=== PATIENT | female | born 1950 | race Caucasian/White ===

== ENCOUNTER → 2020-11-11 12:27 | Outpatient (CLI) | payer MEDICARE, SELFPAY ==
--- NOTE | ~2020-11-11 | DEXA_ITS ---
Bone Density Report Name: Lennie Beasley Age: 70 Sex: Female Ethnicity: White Date of : 1950 Indication: postmenopausal; screening for osteoporosis; asthma or emphysema; hysterectomy; Referring Provider: ANISA VAZQUEZ Study: Bone densitometry was performed. Exam Date: November 11, 2020 Accession number: [id number] Bone Density: Region BMD T-score Z-score Classification AP Spine (L1, L2, L3) 0.904 -1.0 1.2 Normal Femoral Neck (Left) 0.669 -1.6 0.3 Osteopenia Total Hip (Left) 0.854 -0.7 0.9 Normal Femoral Neck (Right) 0.657 -1.7 0.2 Osteopenia Total Hip (Right) 0.823 -1.0 0.7 Normal Total Hip Mean 0.839 -0.9 0.8 Normal World Health Organization criteria for BMD impression classify patients as: Normal (T-score at or above -1.0), Osteopenia (T-score between -1.0 and -2.5), or Osteoporosis (T-score at or below -2.5). 10-year Fracture Risk(1): Major Osteoporotic Fracture 12% Hip Fracture 3.4% Reported Risk Factors: [place] (), Neck BMD=0.657, BMI=28.5, smoking (1) FRAX(R) Version 3.08. Fracture probability calculated for an untreated patient. Fracture probability may be lower if the patient has received treatment. Clinical Information Provided by Patient: Smokes Has the following medical conditions: Asthma or Emphysema, Hysterectomy Patient maximum height was 63.7 Menopause Age: 43 No regular weight bearing exercise Drinks caffeinated beverages Onset of menses at age 12 Number of children 2 Impression: The patient has low bone mass, based on the Right Femoral Neck T-score. The patient has an estimated ten-year risk of hip fracture of 3.4% and an estimated ten-year risk of major fracture of 12%, based on the WHO FRAX algorithm. The patient has risk factors, including: smoking. Discussion: BONE DENSITY IS LOW AT ONE OR MORE SKELETAL SITES. THE PATIENT'S BMD AND CLINICAL RISK FACTORS CONTRIBUTE TO THIS PATIENT'S INCREASED RISK OF FRACTURE. This patient's lowest T-score is low at one or more skeletal sites. It meets the World Health Organization's (WHO) criteria for ?low bone mass? (T-score between -1.0 and -2.5). The patient's 10-year risk of hip fracture as calculated by FRAX exceeds the threshold where pharmacological therapy is recommended by the National Osteoporosis Foundation (NOF). However, all treatment decisions require clinical judgment and consideration of individual patient factors, including patient preferences, comorbidities, previous drug use, risk factors not captured in the FRAX model (e.g., frailty, falls, vitamin D deficiency, increased bone turnover, interval significant decline in bone density) and possible under or overestimation of fracture risk by FRAX. The patient should follow a healthful lifestyle (good nutrition with adequate calcium and vitamin
== END ==
PROVIDERS: PCP Family Medicine; Visit Provider Family Medicine
DX: Z78.0 Asymptomatic menopausal state (principal); M85.852 Other specified disorders of bone density and structure, left thigh; M85.851 Other specified disorders of bone density and structure, right thigh
CPT/HCPCS: 77080

== ENCOUNTER 2023-11-04 08:52 | Outpatient (CLI) | payer MEDICARE, SELFPAY ==
--- NOTE | ~2023-11-04 | CT_ITS ---
EXAMINATION: CT lung screening DATE: 11/04/2023 09:04 INDICATION: Personal history of nicotine dependence TECHNIQUE: Computed tomography (CT) of the chest was performed without intravenous contrast. Addition al 3D reconstructions utilizing coronal maximum intensity projection (MIP) were performed. The dose- length product was 83.67 mGy-cm. COMPARISON: None FINDINGS: Linear bands of discoid atelectasis/scarring in the lingula and right middle lobe. 6 x 5 mm spiculate d right middle lobe nodule at the cephalad aspect of this band of atelectasis near the junction of th e major and minor fissures. There are a few additional scattered 3 mm smaller pulmonary nodules in derek th lungs. These include a couple tiny calcified nodules at the lingula and right lower lobe along wit h calcified right hilar and mediastinal lymph nodes consistent with old granulomatous disease. No ple ural effusion. Heart size is normal. Small pericardial effusion. Atherosclerotic coronary artery calc ific location and aortic valve calcifications. Thoracic aorta is normal in caliber. No pathologically enlarged thoracic lymphadenopathy. 1.8 cm ovoid mass with central calcification at the left breast. Small splenic calcific location consistent with old granulomatous disease. Mild thoracic spondylosis. IMPRESSION: 1. Lung-RADS category 2: Benign appearance or behavior. Continue annual screening with noncontrast lo w-dose chest CT in 12 months. 2. 1.8 cm ovoid left breast mass which could represent the lesion of concern described on prior breas t imaging on 12/21/2017 for which ultrasound-guided biopsy was recommended. Correlate with clinical his tory and any more recent breast imaging. Reviewed, dictated and finalized at location A. IMPRESSION: 1. Lung-RADS category 2: Benign appearance or behavior. Continue annual screeni ng with noncontrast low-dose chest CT in 12 months. 2. 1.8 cm ovoid left breast mass which could represent the lesion of concern de scribed on prior breast imaging on 12/21/2017 for which ultrasound-guided biopsy was recommended. Correlate with clinical history and any more recent breast zaire ging.
== END 2023-11-04 08:53 ==
PROVIDERS: PCP Family Medicine; Visit Provider Physician Assistant
DX: Z12.2 Encounter for screening for malignant neoplasm of respiratory organs (principal); Z87.891 Personal history of nicotine dependence
CPT/HCPCS: 71271

== ENCOUNTER 2024-07-09 09:41 | Outpatient (CLI) | payer MEDICARE, SELFPAY ==
--- NOTE | ~2024-07-09 | DEXA_ITS ---
Bone Density Report Name: HODAN WALL Age: 73 Sex: Female Ethnicity: White Date of : 1950 Indication: osteopenia; hysterectomy; Referring Provider: ANISA VAZQUEZ Study: Bone densitometry was performed. Exam Date: July 09, 2024 Accession number: [id number] Bone Density: Region BMD T-score Z-score Classification AP Spine(L1-L4) 0.973 -0.7 1.8 Normal Femoral Neck (Left) 0.681 -1.5 0.6 Osteopenia Total Hip (Left) 0.880 -0.5 1.3 Normal Femoral Neck (Right) 0.646 -1.8 0.3 Osteopenia Total Hip (Right) 0.808 -1.1 0.7 Osteopenia Total Hip Mean 0.844 -0.8 1.0 Normal World Health Organization criteria for BMD impression classify patients as: Normal (T-score at or above -1.0), Osteopenia (T-score between -1.0 and -2.5), or Osteoporosis (T-score at or below -2.5). 10-year Fracture Risk(1): Major Osteoporotic Fracture 7.2% Hip Fracture 1.7% Reported Risk Factors: [place] (), Neck BMD=0.646, BMI=30.2 (1) FRAX(R) Version 3.08. Fracture probability calculated for an untreated patient. Fracture probability may be lower if the patient has received treatment. Previous Exams: Region Exam Age BMD T-score BMD Change BMD Change Date g/cm2 vs Baseline vs Previous Total Hip(Left) 07/09/2024 73 0.880 -0.5 0.013 (1.4%) 0.013 (1.4%) 12/10/2016 66 0.868 -0.6 Total Hip(Right) 07/09/2024 73 0.808 -1.1 0.007 (0.8%) 0.007 (0.8%) 12/10/2016 66 0.802 -1.2 *Denotes significance at 95% confidence level, LSC for Total Hip = 0.027 g/cm2 Clinical Information Provided by Patient: Has the following medical conditions: Hysterectomy Patient maximum height was 64 No regular weight bearing exercise Drinks caffeinated beverages Onset of menses at age 12 Number of children 2 Impression: The patient has low bone mass, based on the Right Femoral Neck T-score. The patient has an estimated ten-year risk of hip fracture of 1.7% and an estimated ten-year risk of major fracture of 7.2%, based on the WHO FRAX algorithm. No significant bone loss was observed. Discussion: BONE DENSITY IS LOW AT ONE OR MORE SKELETAL SITES. This patient's lowest T-score is low at one or more skeletal sites. It meets the World Health Organization's (WHO) criteria for ?low bone mass? (T-score between -1.0 and -2.5). The patient's 10-year risk of fracture as calculated by FRAX is less than the threshold where pharmacological therapy is recommended by the National Osteoporosis Foundation (NOF). However, all treatment decisions require clinical judgment and consideration of individual patient factors, including patient preferences, comorbidities, previous drug use, risk factors not captured in the FRAX model (e.g., frailty, falls, vitamin D deficiency, increased bone turnover, interval significant decline in bone density) and possible under or overestimation of fracture risk by FRAX. The patient should follow a healthful lifestyle (good nutrition with adequate calcium and vitamin D, and appropriate weight-bearing exercise). Follow-Up: Consider repeating this study in 2 to 3 years to reassess this patient's status, or sooner if there is some new clinical indication. Reported by: MAN on 07/09/2024 10:12:00 AM. Reviewed, dictated and finalized at location AShailesh LANDEROS
--- OUTSIDE RECORDS SUMMARY | 2024-07-09 10:35 | XMS_ITS | Continuity of Care Document ---
Author Organization [facility] [place] [address] [place] [address] Phone Care Team Providers Care Web Analytics Developer Name Role Phone Isaac Dallas Unavailable Unavailable Procedures Procedure Date Post-op Follow-up Visit Post-op Follow-up Visit Remove Cataract, Insert Lens No Charge Glasses Check Office/outpatient Visit, Est IOLMaster-Professional Advance Directives Directive Yes / No Effective Date File Name No Information Encounters Encounter Description Practice Location Reason(s) For Visit Diagnoses Date Provider Providers Copied on Encounter [facility], [address] [place] [address] [address], [place], [place], [id number], [place] tel:[phone] [facility] No Information Oct-2 2-200 9 Burt Gray. [address] , [address], [place], [place], [facility] [place], [place]. tel:[phone] [facility], [address] [place] [address] [address], [place], [place], [id number], [place] tel:[phone] [facility] No Information Oct-1 4-200 9 Burt Gray. [address] [facility] [address] , [address], [place], [address], [place]. tel:[phone] [facility], [address] [place] [address] [address], [place], [place], [id number], [place] tel:[phone] [facility] No Information Oct-1 3-200 9 [facility] Edjaret. [address], [place], [address], [place]. tel:[phone] Referring Provider: Emmett Villatoro, [address] [facility] [address], [place], [facility]. tel:[phone] [facility], [address], [place], [place], [address], [place] tel:[phone] [facility] No Information Oct-0 9-200 9 Porras OD Emmett. [address] [facility] [address], [place], [address], [place]. tel:[phone] Office/outpat ient Visit, [facility], [address], [place], [place], [address], [place] tel:[phone] [facility] No Information Feb-0 8-200 9 [facility] Edjaret. [facility] [address], [place], [address], [place]. tel:[phone] Referring Provider: Emmett Villatoro, Dan[address] [facility] [address], [place], [place], [facility]. tel:[phone] Family History Family Member Type Diagnosis Age At Onset No Information Payers Payer name Insurance type Covered republican ID Authoriza tion(s) No Information Social History Type Description Quantity Date Captured Comments Sex Female Smoking Status No Information Chief Complaint And Reason For Visit No Information Reason For Referral Reason For Referral No Information History Of Present Illness Encounter Date Complaint History Of Prese nt Illness No Information Functional Status Date Functional Assessmen t No Information Instructions Date Instruction Additional Infor mation No Information Assessments Type Assessment Date No Information Patient Care Teams Name Effective Dates (start - stop) Status Members No Information
--- OUTSIDE RECORDS SUMMARY | 2024-07-09 10:35 | XMS_ITS | Clinical Summary ---
Author Organization [facility] Address [address] [place] [address] Care Team Providers Care Monogram Machine Operator Name Role Phone Serina Irizarry MD Primary Care Provider + Allergies Active Allergy Reactions Criticality Noted Date Comments Sulfa (Sulfonamide Antibiotics) Hives Medium 12/15 Medications buPROPion XL (WELLBUTRIN XL) 300 mg 24 hr tablet Take 300 mg by mouth daily. Active budesonide-form oterol (SYMBICORT) 160-4.5 mcg/actuation inhaler Inhale 2 puffs 2 (two) times a day. Rinse mouth with water after use to reduce aftertaste and incidence of candidiasis. Do not swallow. Active aspirin 81 mg tablet Take 81 mg by mouth daily. Active albuterol sulfate 90 mcg/actuation aerosol powdr breath activated Inhale. Active Active Problems Problem Noted Date Diagnosed Date Mammogram abnormal 01/05/2018 Encounters Date Type Department Care Team Description 06/05/2024 10:10 AM BUS PERSON DISHWASHER - 06/05/2024 11:59 PM [facility] Hospital Encounter [facility] Advanced Medicine Breast Imaging [facility] ([facility]) [address] [place] [address] Screening mammogram, encounter for Discharge Disposition: Discharge to home or self care from Last 3 Months Surgical History Surgery Date Site/Laterality Comments BREAST BIOPSY 1996,2007 Left BREAST BIOPSY 01/18/2018 Left Medical History Medical History Date Comments Depression Glaucoma Social History Tobacco Use Types Packs/Day Years Used Date Smoking Tobacco: Every Day Smokeless Tobacco: Never Alcohol Use Standard Drinks/Week Comments Yes 0 (1 standard drink = 0.6 oz pur e alcohol) Comments No Sex and Gender Information Value Date Recorded Sex Assigned at Not on file Legal Sex Female 10:29 PM BUS PERSON DISHWASHER Gender Identity Not on file Sexual Orientation Not on file Obstetrics History Last Filed Vital Signs Vital Sign Reading Time Taken Comments Blood Pressure - - Pulse - - Temperature - - Respiratory Rate - - Oxygen Saturation - - Inhaled Oxygen Concentration - - Weight 72.6 kg (160 lb) 01/04/2018 2:22 PM CDT Height 157.5 cm (5' 2 ) 01/04/2018 2:22 PM CDT Body Mass Index 29.26 01/04/2018 2:22 PM CDT Plan of Treatment Health Maintenance Due Date Last Done Comments Colon Cancer Screening-Colonoscopy 1950 Depression Screening 1950 Fall Risk Assessment 1950 Hepatitis C Screening 1950 Osteoporosis Screening-Bone Density Scan 1950 DTaP/Tdap/Td Vaccine (1 - Tdap) 07/30/1959 Hepatitis B Screening 1966 Pneumococcal vaccine 65+ (1 of 2 - PCV) 07/30/1967 Well Visit 65+ 2013 Influenza Vaccine (#1) 2024 9, 02/03/2018, 03/22/2017, Additional history exists Zoster Vaccine Completed 05/15/2019, 03/05/2019 Breast Cancer Screening-Mammogram Discontinued 06/05/2024, 03/14/2023, 11/27/2021, Additional history exists Procedures Procedure Name Priority Date/Time Associated Diagnosis Comments SCREENING MAMMOGRAM BILATERAL W DILLON Schedule Routine, Read Routine (OP Routine) 06/05/2024 10:29 AM BUS PERSON DISHWASHER Screening mammogram, encounter for from Last 3 Months Results * Screening Mammogram Bilateral W Dillon (06/05/2024 10:29 AM BUS PERSON DISHWASHER) Anatomical Region Laterality Modality Breast Bilateral Mammography Narrative 06/06/2024 11:53 AM BUS PERSON DISHWASHER Mammogram Technique: Bilateral Digital Breast Tomosynthesis, Bilateral C-view 2D Screening mammogram. Views obtained: bilateral craniocaudal and bilateral mediolateral oblique. Computer Aided Detection was performed. Mammogram Findings: The present examination has been compared to prior imaging studies performed at [facility] on 09/02/2020, 11/27/2021 and 03/14/2023. There are scattered areas of fibroglandular density. There is no suspicious abnormality in either breast. There are no significant changes from the prior study. There is no suspicious abnormality in either breast. Impression: There is no mammographic evidence of malignancy. Annual screening mammography is recommended. OVERALL FINAL ASSESSMENT: BI-RADS CATEGORY 2: Benign. Procedure Note Cayla Ho MD - 06/06/2024 Mammogram Technique: Bilateral Digital Breast Tomosynthesis, Bilateral C-view 2D Screening mammogram. Views obtained: bilateral craniocaudal and bilateral mediolateral oblique. Computer Aided Detection was performed. Mammogram Findings: The present examination has been compared to prior imaging studies performed at [facility] on 09/02/2020, 11/27/2021 and 03/14/2023. There are scattered areas of fibroglandular density. There is no suspicious abnormality in either breast. There are no significant changes from the prior study. There is no suspicious abnormality in either breast. Impression: There is no mammographic evidence of malignancy. Annual screening mammography is recommended. OVERALL FINAL ASSESSMENT: BI-RADS CATEGORY 2: Benign. us Self Screening Mammogram IMG MAMMO PROCEDURES Fi nal Result from Last 3 Months Insurance MEDICARE [email or web address] [facility] MEDICARE SUPPLEMENT MEDICARE [place] [address] [place] [address] MEDICARE SUPPLEMENT Care Teams Monogram Machine Operator Relationship Specialty Start Date End Date Serina Irizarry MD PCP - General Family Medicine 12/23/17
--- OUTSIDE RECORDS SUMMARY | 2024-07-09 10:35 | XMS_ITS | Referral Summary ---
Author Organization [facility] Address [address] [place] [address] Care Team Providers Care Telesales Specialist Name Role Phone Unavailable Primary Care Provider Unavailabl e Source Comments [facility],non-owned Affiliates and Associated Physician Practices is amultiple site organization consisting of ambulatory clinics and hospital sitesin [place], [place], [place]. This disclosure is being madepursuant to the Care Everywhere program and may not contain all information available regarding this patient. Last updated 18.[facility] Social History Tobacco Use Types Packs/Day Years Used Date Smoking Tobacco: Never Assessed Sex and Gender Information Value Date Recorded Sex Assigned at Not on file Gender Identity Not on file Sexual Orientation Not on file Plan of Treatment Not on file
--- OUTSIDE RECORDS SUMMARY | 2024-07-09 10:35 | XMS_ITS | Encounter Summary ---
Author Organization [facility] Address [address] [address] Care Team Providers Care Head Piece Assembler Name Role Phone Unavailable Primary Care Provider Unavailabl e Encounter Details Date Type Department Care Team (Late st Contact Info) Description 01/16/2020 Lab Requisition [facility] [address] [place] [phone] Chang Geiger MD [address] [place] [address] Social History Tobacco Use Types Packs/Day Years Used Date Smoking Tobacco: Never Assessed Sex and Gender Information Value Date Recorded Sex Assigned at Not on file Gender Identity Not on file Sexual Orientation Not on file documented as of this encounter Plan of Treatment Not on file documented as of this encounter Procedures Procedure Name Priority Date/Time Associated Diagnosis Comments DERMATOPATHOLOGY Routine 01/15/2020 12:0 0 AM CDT documented in this encounter Results * DERMATOPATHOLOGY (01/15/2020 12:00 AM CDT) Case Report Dermatopathology Report Case: [id number] Authorizing Provider: Chang Geiger MD Collected: 01/15/2020 12:00 AM Ordering Location: [facility] Received: 01/16/2020 02:22 PM Pathologist: Odilia Chiu MD Specimen: Skin, left dorsal distal fot 0 1:04 PM CDT DERMATOPATHOLOGY LABORATORY Final Diagnosis Specimen A. 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 0 1:04 PM CDT DERMATOPATHOLOGY LABORATORY Gross Description Specimen A: Received is one formalin filled container labeled with the patient's name and designated left dorsal distal foot. The specimen consists of a punch biopsy measuring [id number], bisected. Jar 0. 0 1:04 PM CDT DERMATOPATHOLOGY LABORATORY Microscopic Description Specimen A. SKIN, left dorsal distal foot: There are lymphocytes around blood vessels and histiocytes between collagen bundles some of which are arranged in a palisade. Scattered eosinophils is seen. The collagen is focally altered. 0 1:04 PM CDT DERMATOPATHOLOGY LABORATORY Disclaimer An external and internal positive and negative controls are appropriate for the histochemical, immunohistochemical and immunofluorescence stain(s) in this case (if any), except where stated explicitly. The performance characteristics of the stain(s) cited in this report were developed and its performance characteristic determined by the Dermatopathology Laboratory at [facility], directed by Dr. Bear Eaton. These tests need not be, and therefore are not, approved by the [place] Food and Drug Administration. The tests are used for clinical purposes. Billing Codes Specimen Charges Stain Charges 76443 1 0 1:04 PM CDT DERMATOPATHOLOGY LABORATORY Embedded Images 0 1:04 PM CDT DERMATOPATHOLOGY LABORATORY Pathology/Cytolog y TISSUE SPECIMEN FROM SKIN / Unknown 01/15/2020 01/16/2020 2:22 PM CDT Chang Geiger MD LAB - PATHOLOGY/CYTO LOGY ORDERABLES DERMATOPATHOLOGY LABORATORY [facility] - Department of Dermatology [address], [address] [phone] documented in this encounter Visit Diagnoses Not on filedocumented in this encounter
--- OUTSIDE RECORDS SUMMARY | 2024-07-09 10:35 | XMS_ITS | Referral Summary ---
Author Organization [facility] Address [address] [place] [address] Care Team Providers Care Vessel Specialist Name Role Phone Serina Irizarry MD Primary Care Provider + Encounters Date Type Department Care Team Description 06/05/2024 10:10 AM IT INFRASTRUCTURE PROJECT MANAGER - 06/05/2024 11:59 PM [facility] Hospital Encounter [facility] Advanced Medicine Breast Imaging [facility] ([facility]) [address] [place] [phone] Screening mammogram, encounter for Discharge Disposition: Discharge to home or self care from Last 3 Months Allergies Active Allergy Reactions Criticality Noted Date [...] Noted Date Diagnosed Date Mammogram abnormal 01/05/2018 Social History Tobacco Use Types Packs/Day Years Used Date Smoking Tobacco: Every Day Smokeless Tobacco: Never Alcohol Use Standard Drinks/Week Comments Yes 0 (1 standard drink = 0.6 oz pur e alcohol) Comments No Sex and Gender Information Value Date Recorded Sex Assigned at Not on file Legal Sex Female 10:29 PM IT INFRASTRUCTURE PROJECT MANAGER Gender Identity Not on file Sexual Orientation Not on file Last Filed Vital Signs Vital Sign Reading Time Taken Comments Blood Pressure - - Pulse - - Temperature - - Respiratory Rate - - Oxygen Saturation - - Inhaled Oxygen Concentration - - Weight 72.6 kg (160 lb) 01/04/2018 2:22 PM CDT Height 157.5 cm (5' 2 ) 01/04/2018 2:22 PM CDT Body Mass Index 29.26 01/04/2018 2:22 PM CDT Plan of Treatment Not on file Procedures Procedure Name Priority Date/Time Associated Diagnosis Comments SCREENING MAMMOGRAM BILATERAL W DILLON Schedule Routine, Read Routine (OP Routine) 06/05/2024 10:29 AM IT INFRASTRUCTURE PROJECT MANAGER Screening mammogram, encounter for from Last 3 Months Results * Screening Mammogram Bilateral W Dillon (06/05/2024 10:29 AM IT INFRASTRUCTURE PROJECT MANAGER) Anatomical Region Laterality Modality Breast Bilateral Mammography Narrative 06/06/2024 11:53 AM IT INFRASTRUCTURE PROJECT MANAGER Mammogram Technique: Bilateral Digital Breast Tomosynthesis, Bilateral C-view 2D Screening mammogram. Views obtained: bilateral craniocaudal and bilateral mediolateral oblique. Computer Aided Detection was performed. Mammogram Findings: The present examination has been compared to prior imaging studies performed at [facility] on 09/02/2020, 11/27/2021 and 03/14/2023. There are [...] compared to prior imaging studies performed at [facility] on 09/02/2020, 11/27/2021 and 03/14/2023. There are [...] Result from Last 3 Months Insurance MEDICARE RAILROAD [facility] Address: [address] [address] [place] [address] [facility] [employer] MEDICARE SUPPLEMENT [place] [address] [facility] MEDICARE SUPPLEMENT Care Teams Vessel Specialist Relationship Specialty Start Date End Date Serina Irizarry MD PCP - General Family Medicine 12/23/17
--- OUTSIDE RECORDS SUMMARY | 2024-07-09 10:35 | XMS_ITS | Patient Health Summary ---
Author Organization [facility] Address [address] [place] [address] Care Team Providers Care Baby Doctor Name Role Phone Unavailable Primary Care Provider Unavailabl e Note from [facility],non-owned Affiliates and Associated Physician Practices is amultiple site organization consisting of ambulatory clinics and hospital sitesin [place], [place], [place] and [place]. This disclosure is being madepursuant to the Care Everywhere program and may not contain all information available regarding this patient. Last updated 18.[facility] [employer] Social History Tobacco Use Types Packs/Day Years Used Date Smoking Tobacco: Never Assessed Sex and Gender Information Value Date Recorded Sex Assigned at Not on file Gender Identity Not on file Sexual Orientation Not on file Procedures * DERMATOPATHOLOGY(Performed 01/15/2020) * DERMATOPATHOLOGY(Performed 03/09/2017) Results * DERMATOPATHOLOGY (01/15/2020 12:00 AM CDT) Only the most recent of2 resultswithin the time period is included. Case Report Dermatopathology Report Case: [id number] Authorizing Provider: Chang Geiger MD Collected: 01/15/2020 12:00 AM Ordering Location: [facility] Received: 01/16/2020 02:22 PM Pathologist: [...] specimen consists of a punch biopsy measuring [id number], bisected. Jar 0. 0 1:04 PM CDT [...] characteristic determined by the Dermatopathology Laboratory at [facility], directed by Dr. Bear Eaton. These tests need not be, and therefore are not, approved by the [place] Food and Drug Administration. The tests are used for clinical purposes. Billing Codes Specimen Charges Stain Charges 62654 1 0 1:04 PM CDT DERMATOPATHOLOGY LABORATORY Embedded Images 0 1:04 PM CDT DERMATOPATHOLOGY LABORATORY Pathology/Cytolog y TISSUE SPECIMEN FROM SKIN / Unknown 01/15/2020 01/16/2020 2:22 PM CDT Chang Geiger MD LAB - PATHOLOGY/CYTO LOGY ORDERABLES DERMATOPATHOLOGY LABORATORY [facility] Department of Dermatology [address] [phone]
--- OUTSIDE RECORDS SUMMARY | 2024-07-09 10:35 | XMS_ITS | Clinical Summary ---
Author Organization [facility] Address [address] [place] [address] Care Team Providers Care Wetland Scientist Name Role Phone Unavailable Primary Care Provider Unavailabl e Source Comments [facility],non-owned Affiliates and Associated Physician Practices is amultiple site organization consisting of ambulatory clinics and hospital sitesin [place], [place], [place] and [place]. This disclosure is being madepursuant to the Care Everywhere program and may not contain all information available regarding this patient. Last updated 18.[facility] [employer] Social History Tobacco Use Types Packs/Day Years Used Date Smoking Tobacco: Never Assessed Sex and Gender Information Value Date Recorded Sex Assigned at Not on file Gender Identity Not on file Sexual Orientation Not on file Plan of Treatment Health Maintenance Due Date Last Done Comments BONE DENSITY TESTING 1950 COLOGUARD (AGES 45-75) - COL ON CA SCREENING 1950 COLON MONITORING 1948 COLONOSCOPY - COLON CA SCREENING 1948 CT COLONOGRAPHY - COLON CA SCREENING 1950 Colorectal Cancer Screening 1950 FIT - COLON CA SCREENING 1948 FLEX SIG - COLON CA SCREENING 1948 LIPID TESTING 1950 MAMMOGRAM 1950 MEDICARE AWV 12 MONTHS 1948 HEPATITIS C SCREENING 07/25/1966 DTAP/TDAP/TD VACCINES (1 - Tdap) 07/30/1967 PNEUMOCOCCAL VACCINE 50+ (1 of 1 - PCV) 1998 ZOSTER VACCINE (1 of 2) 1998 Respiratory Syncytial Virus (RSV) Vaccine Pt: or over 60 yrs (1 - 1-dose 75+ series) 07/30/2023 COVID-19 VACCINE ( - 2023-2 5 season) 2024 INFLUENZA VACCINE (#1) 2024 DEPRESSION SCREENING 05/16/2024 HEPATITIS B VACCINE Aged Out No longe r eligible based on patient's age to complete this topic HIB VACCINE Aged Out No longer eligi ble based on patient's age to complete this topic HPV VACCINE Aged Out No longer eligi ble based on patient's age to complete this topic MENINGOCOCCAL (Group B) VACCINE Aged Out No longer eligible based on patient's age to complete this topic MENINGOCOCCAL VACCINE Aged Out No alphonse cachorro eligible based on patient's age to complete this topic
--- OUTSIDE RECORDS SUMMARY | 2024-07-09 10:35 | XMS_ITS | Encounter Summary ---
Author Organization [facility] Address [address] [place] [id number] Care Team Providers Care Automotive Collision Estimator Name Role Phone Serina Irizarry MD Primary Care Provider + Encounter Details Date Type Department Care Team (Late st Contact Info) Description 08/29/2020 Telephone [facility] [address] [place] [address] Chantelle Ball, RT Social History Tobacco Use Types Packs/Day Years Used Date Smoking Tobacco: Every Day Smokeless Tobacco: Never Alcohol Use Standard Drinks/Week Comments Yes 0 (1 standard drink = 0.6 oz pur e alcohol) Comments No Sex and Gender Information Value Date Recorded Sex Assigned at Not on file 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
== END 2024-07-09 09:42 | disposition home or self-care (01) ==
LOC: ANHIMG 09:43
PROVIDERS: PCP Family Medicine; Visit Provider Family Medicine
DX: Z78.0 Asymptomatic menopausal state (principal); M85.852 Other specified disorders of bone density and structure, left thigh; M85.851 Other specified disorders of bone density and structure, right thigh
CPT/HCPCS: 77080